=== PATIENT | female | born 1945 | race Hispanic/Latino ===

== ENCOUNTER 2020-05-07 06:27 | Day surgery (SDC) | payer OTHER ==
[2020-05-05 13:27] LABS: BASOPHILS % (AUTO) 0.5 % (0.0-5.0); EOSINOPHILS % (AUTO) 2.9 % (0.0-8.0); HEMATOCRIT 35.3 % (36-48); LYMPHOCYTES % (AUTO) 24.9 % (21.0-51.0); MEAN CORPUSCULAR HEMOGLOBIN 27.5 pg (27.0-33.0); MEAN CORPUSCULAR HGB CONC 31.7 g/dL (32.0-36.0); MEAN CORPUSCULAR VOLUME 86.7 fL (79-99); MONOCYTES % (AUTO) 6.9 % (3.0-13.0); NEUTROPHILS % (AUTO) 64.7 % (40.0-77.0); PLATELET COUNT (AUTO) 191 K/uL (130-400); RED BLOOD CELL COUNT(AUTO) 4.07 MIL/uL (4.00-5.50); RED CELL DISTRIBUTION WIDTH 14.6 % (11.0-15.5); WHITE BLOOD COUNT (AUTO) 7.7 K/uL (4.8-10.8)
[2020-05-05 13:32] LABS: POTASSIUM 4.3 mmol/L (3.5-5.1)
[2020-05-05 13:35] LABS: APPEARANCE,URINE Clear (CLEAR); BILIRUBIN,URINE Negative (NEGATIVE); COLOR,URINE Dark Yellow (YELLOW); GLUCOSE, URINE (UA) >=1000 mg/dL (NEGATIVE); KETONES,URINE Negative (NEGATIVE); LEUKOCYTE ESTERASE ,URINE Negative (NEGATIVE); NITRATE,URINE Negative (NEGATIVE); OCCULT BLOOD,URINE Negative (NEGATIVE); PROTEIN,URINE Negative (NEGATIVE); UROBILINOGEN,URINE 0.2 mg/dL (0.2-1.0)
[2020-05-05 13:36] LABS: INR 0.94 (0.85-1.15); PARTIAL THROMBOPLASTIN TIME 27.3 SEC (26.3-35.5); PROTHROMBIN TIME 10.2 SEC (9.6-11.6)
[2020-05-05 14:28] LABS: BACTERIA,URINE Rare /HPF (None Seen); WBC,URINE 0-1 /HPF (0-1)
[2020-05-05 14:29] LABS: SQUAMOUS EPITHELIAL CELL,UR Rare /HPF (0-2)
[2020-05-05 16:12] VITALS: BP 139/59
[~2020-05-07] VITALS: Ht 144.8 cm; Wt 76.7 kg
[2020-05-07] VITALS (11 sets, daily range): BP systolic 131–178; BP diastolic 35–76
[~2020-05-07 06:27] MED LIST: CYAN250014 PO; FURO40TA7 PO; IRON-23 PO; LINA72CA PO; LISI-617 PO; METF-444 PO; MV-M1TAB20 PO; ROSU10TA22 PO
[2020-05-07] MEDS ORDERED: SODIUM CHLORIDE 0.9% 1000ML 1,000 ML IV ONE (07:30)
[2020-05-07] MEDS ORDERED: IOHEXOL-350 50ML VIAL IV ONE (09:01)
[2020-05-07] MEDS ORDERED: IOHEXOL-350 75 ML VIAL IV ONE ×2 (09:01→10:25)
[2020-05-07] MEDS ORDERED: MIDAZOLAM HCL 1 MG/ML 2ML VIAL ONE (09:01)
[2020-05-07] MEDS ORDERED: NICARDIPINE HCL 25 MG/10 ML ML IV ONE (09:01)
[2020-05-07] MEDS ORDERED: HEPARIN SODIUM 1000UNIT/ML 10ML VIAL ONE (09:01)
[2020-05-07] MEDS ORDERED: NITROGLYCERIN 2 MG/VIAL VIAL IV ONE (09:01)
[2020-05-07] MEDS ORDERED: FENTANYL CITRATE PF 50 MCG/1 ML 2ML VIAL ONE (09:02)
[2020-05-07] MEDS ORDERED: LIDOCAINE HCL 2% 20ML ONE (09:02)
[2020-05-07] MEDS ORDERED: SODIUM BICARB 50MEQ 50ML VIAL 50 ML ONE (09:47)
--- NOTE | 2020-05-07 13:45 | NUR ---
activity/elimination: up to bathroom without complaints of dizziness, steady gait. voided qs clear yelow urine in toilet without difficulty. assisted back to bed at sitting position.
--- NOTE | 2020-05-07 17:05 | NUR ---
dc pt dc home via [place],no distress noted. pt accompanied by sister.
== END 2020-05-07 17:05 | disposition home or self-care (01) ==
LOC: DAH 06:27
PROVIDERS: ATTEND Internal Medicine Cardiovascular Disease
DX: I25.729 Atherosclerosis of autologous artery coronary artery bypass graft(s) with unspecified angina pectoris (principal); I25.119 Atherosclerotic heart disease of native coronary artery with unspecified angina pectoris; I25.82 Chronic total occlusion of coronary artery; I10 Essential (primary) hypertension; E11.9 Type 2 diabetes mellitus without complications; Z95.5 Presence of coronary angioplasty implant and graft; Z98.84 Bariatric surgery status; Z98.891 History of uterine scar from previous surgery; Z98.890 Other specified postprocedural states; Z82.49 Family history of ischemic heart disease and other diseases of the circulatory system; Z79.84 Long term (current) use of oral hypoglycemic drugs; Z79.82 Long term (current) use of aspirin; Z79.899 Other long term (current) drug therapy; Z79.01 Long term (current) use of anticoagulants
CPT/HCPCS: 36415; 71045; 80048; 81001; 82948 ×2; 85025; 85610; 85730; 93005; 93459; A4215; A4216; A4221; A4222; A4223 ×3; A4606; A4663; C1760; C1769 ×2; C1894 ×3; J1644; J2250; J3010; J3490 ×3; J7030; Q9967 ×3; 96365; 96366; 99156; 99157